=== PATIENT | male | born 1955 | race Caucasian/White ===

== ENCOUNTER 2017-06-02 11:03 | Emergency (ER) | payer MEDICAID, OTHER ==
[~2017-06-02] VITALS: Ht 165.1 cm; Wt 105.0 kg
[2017-06-02 11:09] VITALS: Ht 165.1 cm; Wt 105.0 kg
[2017-06-02] MEDS ORDERED: TELM80TA4 PO (12:23)
[2017-06-02] MEDS ORDERED: AMLO-145 PO (12:23)
[2017-06-02] MEDS ORDERED: ADV25050 INHALATION ×2 (12:27→12:36)
--- NOTE | 2017-06-02 15:09 | ERD ---
ER Documentation Chief Complaint Date/Time DATE: 06/02/17 TIME: 15:02 Chief Complaint need med refill HPI 62-year-old male with past medical history of asthma and hypertension who presents to the emergency department for concerns of a medication refill. Patient moved here to [place] 1 month ago from [place]. Patient brings in his prescriptions. Patient requesting refill of Twynsta 80/50 mg QD ( Telmisartan 80 mg/ Amlodipine 5 mg) and Seretide MDI 250/25 (Salmeterol/ Fluticasone). Denies any fevers, chills, nausea, vomiting, chest pain, shortness breath, cough, left upper extremity pain, diaphoresis or loss of consciousness. Patient's telemetry presents for medication refill. Patient has no other concerns at this time. ROS All systems reviewed and are negative except as per history of present illness. Medications Home Meds Active Scripts Salmeterol Xinaf/Fluticasone* (Advair*) 250-50 Diskus Inhaler, 1 INH INHALATION BID, #1 INHALER Prov:SAIRA POWER PA-C 06/02/17 Amlodipine Besylate* (Amlodipine Besylate*) 5 Mg Tablet, 5 MG PO DAILY, #30 TAB Prov:SAIRA POWER PA-C 06/02/17 Telmisartan (Telmisartan) 80 Mg Tablet, 80 MG PO DAILY, #30 TAB Prov:SAIRA POWER PA-C 06/02/17 Allergies Allergies: Coded Allergies: No Known Allergy (Unverified , 06/02/17) PMhx/Soc Hx Alcohol Use: No Hx Substance Use: No Hx Tobacco Use: No Smoking Status: Never smoker Physical Exam Vitals Vital Signs Date Time Temp Pulse Resp B/P Pulse Ox O2 Delivery O2 Flow Rate FiO2 06/02/17 11:09 97.3 67 18 123/88 97 Physical Exam GENERAL: Well-developed, well-nourished male. Appears in no acute distress. HEAD: Normocephalic, atraumatic. EYES: Pupils are equally reactive bilaterally. EOMs grossly intact. No conjunctival erythema. ENT: Moist mucous membranes. No uvula deviation. No kissing tonsils. NECK: Supple. No meningismus. Normal range of motion of the neck. LUNG: Clear to auscultation bilaterally. No rhonchi, wheezing, rales or coarse breath sounds. HEART: Regular rate and rhythm. No murmurs, rubs or gallops. EXTREMITIES: Equal pulses bilaterally. No peripheral clubbing, cyanosis or edema. No unilateral leg swelling. NEUROLOGIC: Alert and oriented. Moving all four extremities without any difficulty. Normal speech. Steady gait. SKIN: Normal color. Warm and dry. No rashes or lesions. Procedures/MDM MEDICAL DECISION MAKING: Patient is a 62-year-old male with past medical history of hypertension asthma presents to the ED for concerns of medication refill. Patient recently moved from [place]. Patient has no other concerns or complaints at this time.. Vital signs were reviewed. Patient is afebrile. Patient was not hypoxic. Patient was hemodynamically stable. residential service technician converted medication names to [place] medications. Patient will be provided with a refill of his blood pressure and asthma medications. Patient was given a list of clinics in the area. Patient was encouraged to establish care here in the [place]. Low suspicion for drug-seeking behavior, asthma exacerbation, hypertensive emergency /urgency. PRESCRIPTION: Amlodipine, Telmisartan, Advair DISCHARGE: At this time, patient is stable for discharge and outpatient management. I have instructed the patient to follow-up with his/her primary care physician in 1-2 days. I have discussed with the patient the possibility of needing to see a specialist for further workup and imaging studies if symptoms persist. I have instructed the patient to promptly return to the ER for any new or worsening symptoms including increased pain, fever, nausea, vomiting, weakness or LOC. The patient and/or family expressed understanding of and agreement with this plan. All questions were answered. Home care instructions were provided. Disclaimer: Inadvertent spelling and grammatical errors are likely due to EHR/ dictation software use and do not reflect on the overall quality of patient care. Also, please note that the electronic time recorded on this note does not necessarily reflect the actual time of the patient encounter. Departure Diagnosis: Primary Impression: Encounter for medication refill Condition: Stable Patient Instructions: Taking Medicine Safely Referrals: COMMUNITY CLINICS YOU HAVE RECEIVED A MEDICAL SCREENING EXAM AND THE RESULTS INDICATE THAT YOU DO NOT HAVE A CONDITION THAT REQUIRES URGENT TREATMENT IN THE EMERGENCY DEPARTMENT. FURTHER EVALUATION AND TREATMENT OF YOUR CONDITION CAN WAIT UNTIL YOU ARE SEEN IN YOUR DOCTORS OFFICE WITHIN THE NEXT 1-2 DAYS. IT IS YOUR RESPONSIBILITY TO MAKE AN APPOINTMENT FOR ELAN-UP CARE. IF YOU HAVE A PRIMARY DOCTOR --you should call your primary doctor and schedule an appointment IF YOU DO NOT HAVE A PRIMARY DOCTOR YOU CAN CALL OUR PHYSICIAN REFERRAL HOTLINE AT IF YOU CAN NOT AFFORD TO SEE A PHYSICIAN YOU CAN CHOSE FROM THE FOLLOWING [facility] [address] [facility] [address] [facility] [address] [facility] [address] [facility] [address] [facility]. [facility] [address] [facility]. [facility] YOU HAVE RECEIVED A MEDICAL SCREENING EXAM AND THE RESULTS INDICATE THAT YOU DO NOT HAVE A CONDITION THAT REQUIRES URGENT TREATMENT IN THE EMERGENCY DEPARTMENT. FURTHER EVALUATION AND TREATMENT OF YOUR CONDITION CAN WAIT UNTIL YOU ARE SEEN IN YOUR DOCTORS OFFICE WITHIN THE NEXT 1-2 DAYS. IT IS YOUR RESPONSIBILITY TO MAKE AN APPOINTMENT FOR FOLOW-UP CARE. IF YOU HAVE A PRIMARY DOCTOR --you should call your primary doctor and schedule and appointment IF YOU DO NOT HAVE A PRIMARY DOCTOR YOU CAN CALL OUR PHYSICIAN REFERRAL HOTLINE AT . IF YOU CAN NOT AFFORD TO SEE A PHYSICIAN YOU CAN CHOSE FROM THE FOLLOWING [facility] INSTITUTIONS: [facility] [address] [place] [address] [facility] [address] [place] [address] [facility] + [facility] [address] [place] [address] Additional Instructions: Call your primary care doctor TOMORROW for an appointment during the next 1-2 days.See the doctor sooner or return here if your condition worsens before your appointment time. SAIRA POWER PA-C Jun 02, 2017 15:09
== END 2017-06-02 13:05 | disposition home or self-care (01) ==
LOC: FTE 11:03
DX: Z76.0 Encounter for issue of repeat prescription (principal); J45.909 Unspecified asthma, uncomplicated; I10 Essential (primary) hypertension
CPT/HCPCS: 99281

== ENCOUNTER 2017-06-04 11:37 | Emergency (ER) | payer MEDICAID ==
[~2017-06-04] VITALS: Ht 172.7 cm; Wt 105.5 kg
[~2017-06-04 11:37] MED LIST: ADV25050 INHALATION; AMLO-145 PO; TELM80TA4 PO
[2017-06-04 11:42] VITALS: Ht 172.7 cm; Wt 105.5 kg
[2017-06-04] MEDS ORDERED: LOSA50TA6 PO (13:38)
[2017-06-04] MEDS ORDERED: FLUT1AER7 IH (13:38)
[2017-06-04] MEDS ORDERED: AMLO-147 PO (13:38)
--- NOTE | 2017-06-04 13:52 | ERD ---
ER Documentation Chief Complaint Date/Time DATE: 06/04/17 TIME: 13:49 Chief Complaint Patient need eval and alternative pain medication HPI This 62-year-old male presents for medication refill. It been to this year previous for medication refill and he was given the equivalent of his [place] medications however his insurance company here does not cover the medications. I spoke to him on the phone they told him that he could come back and try to get your doctor to call the insurance company to find suitable substitutes that are covered. He has both hypertension and reactive airway disease. Currently he is not experiencing any symptoms. ROS All systems reviewed and are negative except as per history of present illness. Medications Home Meds Active Scripts Amlodipine Besylate* (Amlodipine Besylate*) 10 Mg Tablet, 10 MG PO DAILY, #30 TAB 1 Refill Prov:CAROLINARILEY 06/04/17 Losartan Potassium* (Losartan Potassium*) 50 Mg Tablet, 50 MG PO DAILY, #30 TAB 1 Refill Prov:CAROLINARILEY 06/04/17 Fluticasone/Salmeterol (Airduo Respiclick 113-14 Mcg) 1 Each Aer.pow.ba, 1 EACH IH BID, #1 1 Refill Prov:CAROLINARILEY 06/04/17 Salmeterol Xinaf/Fluticasone* (Advair*) 250-50 Diskus Inhaler, 1 INH INHALATION BID, #1 INHALER Prov:SAIRA POWER PA-C 06/02/17 Amlodipine Besylate* (Amlodipine Besylate*) 5 Mg Tablet, 5 MG PO DAILY, #30 TAB Prov:SAIRA POWER PA-C 06/02/17 Telmisartan (Telmisartan) 80 Mg Tablet, 80 MG PO DAILY, #30 TAB Prov:SAIRA POWER PA-C 06/02/17 Allergies Allergies: Coded Allergies: No Known Allergy (Unverified , 06/02/17) PMhx/Soc Hx Alcohol Use: No Hx Substance Use: No Hx Tobacco Use: No Physical Exam Vitals Vital Signs Date Time Temp Pulse Resp B/P Pulse Ox O2 Delivery O2 Flow Rate FiO2 06/04/17 11:42 96.7 66 20 126/67 96 Physical Exam Const: [] No distress Head: Atraumatic Eyes: Normal Conjunctiva ENT: Normal External Ears, Nose and Mouth. Skin: No petechiae or rashes Neur: Awake and alert and oriented 3, no focal deficits Procedures/MDM Simple medication refill. I placed a call to the patient's insurance company and spoke to auto claim representative with the final decision his medications would be amlodipine, airduo, losartan. Primary care follow-up in 2-3 days is recommended as well as return precautions to the ER any acute symptoms. Departure Diagnosis: Primary Impression: Encounter for medication refill Condition: Stable Patient Instructions: Hypertension, Established Additional Instructions: Call your primary care doctor TOMORROW for an appointment during the next 2-3 days.See the doctor sooner or return here if your condition worsens before your appointment time. RILEY FIGUEROA DO Jun 04, 2017 13:52
[2017-06-04 14:13] VITALS: BP 122/71; PULSE 79; RESP 20; TEMP 98
== END 2017-06-04 14:13 | disposition home or self-care (01) ==
LOC: FTE 11:37
DX: Z76.0 Encounter for issue of repeat prescription (principal)
CPT/HCPCS: 99281